=== PATIENT | female | born 1975 | race African-American/Black ===

== ENCOUNTER 2017-06-10 21:02 | Emergency (ER) | payer MEDICAID ==
[~2017-06-10] VITALS: Ht 170.2 cm; Wt 112.7 kg
[2017-06-10 21:08] VITALS: BP 122/84
[2017-06-10] MEDS ORDERED: IBUP-1984 PO (23:47)
[2017-06-10] MEDS ORDERED: AMOX500C2 PO (23:47)
[2017-06-10] MEDS: dexamethasone sod phosphate 10mg/ml inj IM STA (23:52)
== END 2017-06-11 00:12 | disposition home or self-care (01) ==
LOC: ER 21:04
DX: R59.1 Generalized enlarged lymph nodes (principal); G56.00 Carpal tunnel syndrome, unspecified upper limb; J02.9 Acute pharyngitis, unspecified; Z59.0 Homelessness
CPT/HCPCS: 96372; 99283; J1100

== ENCOUNTER 2017-09-09 20:29 | Emergency (ER) | payer MEDICAID ==
[~2017-09-09] VITALS: Ht 170.2 cm; Wt 110.4 kg
[2017-09-09 23:52] VITALS: BP 134/74
[2017-09-10] MEDS ORDERED: famotidine 20mg tablet PO ONE (00:35)
[2017-09-10] MEDS ORDERED: diphenhydrAMINE 25mg capsule PO ONE (00:35)
[2017-09-10] MEDS ORDERED: predniSONE 20 mg tablet PO ONE (00:35)
[2017-09-10] MEDS ORDERED: DIPH25CA83 PO (00:37)
[2017-09-10] MEDS ORDERED: FAMO-128 PO (00:37)
[2017-09-10] MEDS ORDERED: PRED20TA PO (00:37)
== END 2017-09-10 00:55 | disposition home or self-care (01) ==
LOC: ER 20:30
DX: L23.9 Allergic contact dermatitis, unspecified cause (principal); Z59.0 Homelessness; Z79.899 Other long term (current) drug therapy
CPT/HCPCS: 99284; J7512; Q0163